=== PATIENT | female | born 1975 | race Caucasian/White ===

== ENCOUNTER 2021-12-07 06:20 | Day surgery (SDC) | payer OTHER ==
[~2021-12-07] VITALS: Ht 167.6 cm; Wt 68.2 kg
--- NOTE | ~2021-12-07 | OR ---
[facility] [address] [place], [place] [address] [place] DATE OF OPERATION: 12/07/2021 SURGEON: Itzel Hardin MD PREOPERATIVE DIAGNOSIS: Carpal tunnel syndrome, right. POSTOPERATIVE DIAGNOSIS: Carpal tunnel syndrome, right. PROCEDURE PERFORMED: Carpal tunnel release, right. FUSING MACHINE TENDER: None. ANESTHESIA: Santi block. TOURNIQUET TIME: 20 minutes. IMPLANTS: None. BRIEF HISTORY: Pedro is a 46-year-old female with progressive worsening and numbness and pain in her wrist. Risks and benefits of operative treatment discussed with her and she elected to proceed. DESCRIPTION OF PROCEDURE: Once consent was obtained, she was taken to the operating room. After adequate anesthesia, she was left on the day surgery cart. Hand table was brought in. The arm was prepped and draped in a standard sterile fashion. The carpal tunnel was approached through a 1.5 cm incision in her distal wrist, this was carried through skin and subcutaneous tissue. The remnants of the palmaris longus were identified, retracted, and protected. Under loupe magnification, the transverse carpal ligament was identified and released proximally 1 cm and distally to the distal extent again under direct loupe magnification. The carpal tunnel was then palpated using a [place] and found to be completely released. The wound was copiously irrigated with normal saline, closed with PATIENT NAME: PEDRO ROA OPERATIVE REPORT DATE OF : 77 REPORT #: [id number] PHYSICIAN: ITZEL HARDIN MD PCP: ALLA CROW REPORT IS CONFIDENTIAL AND NOT TO BE RELEASED WITHOUT AUTHORIZATION [facility] [address] [place] [address] Draft 3-0 nylon and dressed with bacitracin, Adaptic 4 x 8's, and gauze. We did inject the barbara-incisional soft tissue with about 5 mL of 0.25% plain Marcaine. She tolerated the procedure well. All sponge, needle, and instrument counts were correct. Itzel Hardin MD [facility]/[place] /[id number] Copies: ~ PATIENT NAME: PEDRO ROA OPERATIVE REPORT DATE OF : 77 REPORT #: [id number] PHYSICIAN: ITZEL HARDIN MD PCP: ALLA CROW REPORT IS CONFIDENTIAL AND NOT TO BE RELEASED WITHOUT AUTHORIZATION
[~2021-12-07 06:20] MED LIST: ALDACTONE50 MG PO; CALCIUM600 MG PO; HYDROCODON-ACE1 EA10 PO; IRON325 M1 PO; MINOCIN50 MG PO; MULTI VITAMIN1 EACH PO; PLAQUENIL200 MG PO
--- NOTE | 2021-12-07 08:42 | NUR ---
PT ALERT, ORIENTED AND SEEMS CALM AND INFORMED. GAVE ENCOURAGEMENT, PT DID REQUEST PRAYER. AT DC HER DAUGHTER WILL BE HERE. WILL FOLLOW
[2021-12-07] MEDS ORDERED: HYDROCODON-ACE1 EA10 PO (08:44)
--- NOTE | 2021-12-07 08:51 | NUR ---
12/07/21 0851 Ana Skinner 0892 PATIENT ARRIVES TO PACU UNRESPONSIVE TO PAIN. HEAD OF BED ELEVATED. HEAD REPOSITIONED. RESP EVEN AND UNLABORED, MASK AT 6 LITERS.
== END 2021-12-07 09:35 | disposition home or self-care (01) ==
LOC: DS 06:20
PROVIDERS: ATTEND Specialist
PROC: 01N50ZZ Release Median Nerve, Open Approach (ICD-10-PCS; principal; 2021-12-07 08:10)
DX: G56.01 Carpal tunnel syndrome, right upper limb (principal)
CPT/HCPCS: J0690; J2704; J7121

== ENCOUNTER 2024-06-03 20:15 | Emergency (ER) | payer BC ==
[~2024-06-03] VITALS: Ht 167.6 cm; Wt 73.1 kg
[2024-06-03] MEDS ORDERED: MORPHINE SULFATE 4 MG/ML VIAL IV ONE (20:30)
[2024-06-03] MEDS ORDERED: SODIUM CHLORIDE 0.9% 1,000 ML IV ONE (20:30)
[2024-06-03] MEDS ORDERED: ondansetron HCL 4 MG/2 ML VIAL IV ONE (20:30)
[2024-06-03 20:34] LABS: HEMOGLOBIN 13.5 g/dL (12.0-18.0); NEUTROPHILS 57.1 % (39-80); PLATELET COUNT 208 K/uL (140-440)
[2024-06-03 20:37] LABS: BASOPHILS 0.5 % (0-2); HEMATOCRIT 40.2 % (35.0-50.0); LYMPHOCYTES 27.2 % (24-44); MCH 31.1 (27-36); MCHC 33.6 g/dl (30-36); MCV 92.6 fl (81-99); MONOCYTES 15.2 % (0-12); RBC 4.34 M/ul (4.3-5.7); RDW 12.6 (10.5-15.0)
[2024-06-03 20:50] LABS: ALBUMIN 4.1 g/dL (3.4-5.0); ALBUMIN/GLOBULIN RATIO 1.05 (1.1-2.4); ANION GAP 13.7 (7-21); BILIRUBIN, TOTAL 0.2 ng/dL (0.2-1.0); BUN/CREATININE RATIO 21.91 (6.0-28.6); CALCIUM 9.2 mg/dL (8.5-10.1); CREATININE, SERUM 0.73 mg/dL (0.55-1.02); POTASSIUM 3.7 mmol/L (3.5-5.1)
[2024-06-03] MEDS ORDERED: TRAMADOL HCL50 MG PO (21:27)
[2024-06-03] MEDS ORDERED: ONDANSETRON ODT8 MG PO (21:30)
[2024-06-03 21:45] LABS: BILIRUBIN, URINE NEGATIVE (negative); BLOOD/HGB, URINE NEGATIVE (Negative); KETONE, URINE NEGATIVE (Negative); LEUK ESTERASE, URINE NEGATIVE (negative); NITRITE, URINE NEGATIVE (negative)
[2024-06-03] MEDS ORDERED: ONDANSETRON 4 MG HOME.PACK SL ONE (21:45)
[2024-06-03] MEDS ORDERED: TRAMADOL HCL 50 MG HOME.PACK PO ONE (21:45)
[2024-06-03] MEDS ORDERED: FUROSEMIDE 40 MG/4 ML VIAL IV ONE (21:45)
[2024-06-03 22:05] VITALS: BP 136/74
== END 2024-06-03 22:05 | disposition home or self-care (01) ==
LOC: ED 20:15
PROVIDERS: Family Medicine
DX: R10.11 Right upper quadrant pain (principal); Z88.6 Allergy status to analgesic agent
CPT/HCPCS: 36415; 74177; 80053; 81003; 83690; 84703; 85025; 96375; 99284-25; A9270; J2270; J2405; J7030; Q9967